=== PATIENT | male | born 1960 | race Caucasian/White ===

== ENCOUNTER 2017-07-17 07:51 | Emergency (ER) | payer OTHER ==
[~2017-07-17] VITALS: Ht 180.3 cm; Wt 92.1 kg
[2017-07-17] MEDS ORDERED: LISINOPRIL10 MG PO (08:02)
[2017-07-17 08:18] LABS: ABSOLUTE EOSINOPHILS 0.1 thou/uL (0.0-0.7); ABSOLUTE MONOCYTES 0.4 thou/uL (0.0-1.2); ABSOLUTE NEUTROPHILS 3.2 thou/uL (1.6-8.1); BASOPHILS 0.6 %; EOSINOPHILS 2.3 %; HEMATOCRIT 45.1 % (42.0-52.0); HEMOGLOBIN 15.8 gm/dL (14.0-18.0); LYMPHOCYTES 21.1 %; MCH 30.1 pg (26.0-34.0); MCV 85.9 fL (80.0-100.0); MONOCYTES 8.9 %; MPV 8.6 fl. (7.2-11.1); NUCLEATED RBCS 0 /100WBC; PLATELET COUNT* 217 thou/uL (150-400); POLYS 67.1 %; RBC 5.24 mil/uL (4.50-6.00); RDW-CV 13.4 % (10.5-14.5); WBC 4.7 thou/uL (4.0-11.0)
[2017-07-17 08:27] LABS: ANION GAP 13 mmol/L (7-16); BUN 18 mg/dL (7-18); CALCIUM 8.7 mg/dL (8.5-10.1); CHLORIDE 100 mmol/L (98-107); CO2 23 mmol/L (21-32); GLUCOSE 146 mg/dL (70-99); POTASSIUM 3.6 mmol/L (3.5-5.1); SODIUM 136 mmol/L (136-145)
[2017-07-17 08:36] LABS: APTT 27.1 Seconds (25.0-31.3)
[2017-07-17 08:38] LABS: ALKALINE PHOSPHATASE 92 U/L (46-116); LIPASE 131 U/L (73-393); NT-PRO BRAIN NAT PEPTIDE 13 pg/mL (<300); SGOT 16 U/L (15-37); SGPT 21 U/L (30-65); TOTAL BILIRUBIN 0.5 mg/dL (<0.1-1.0); TOTAL PROTEIN 7.3 g/dL (6.4-8.2); TROPONIN-I LEVEL <0.06 ng/mL (<0.06)
[2017-07-17 12:36] VITALS: BP 122/74
--- NOTE | 2017-07-17 17:56 | EKG ---
[place] [address] ELECTROCARDIOGRAM REPORT Name: JOHNNY MAE Room: [facility]#: [id number] Admission: 07/17/17 Attend Phys: Discharge: 07/17/17 Date of : 58 Report #: [id number] THIS REPORT FOR: //name// [facility] ED Test Date: 2017-07-17 Test Time: 07:54:50 Pat Name: JOHNNY MAE Department: Room: Gender: Heel Scourer: Clementina TSAI : 1960 Requested By: Teodora Gallardo Order Number: [id number] MD: Tee Sevilla Measurements Intervals [place] [facility] Rate: 100 P: 47 WV: 203 QRS: -18 QRSD: 94 T: -9 QT: 339 QTc: 438 Interpretive Statements Sinus tachycardia Borderline prolonged WV interval Borderline left axis deviation Borderline T abnormalities, inferior leads No previous ECG available for comparison Electronically Signed On 07-17-2017 17:55:47 CDT by Tee Sevilla [email or web address] <ELECTRONICALLY SIGNED> By: Tee Sevilla MD, [facility] 07/17/17 1755 [id number] Tee Sevilla MD, FAC /EPI
== END 2017-07-17 12:37 | disposition home or self-care (01) ==
LOC: M.ERS 07:51
PROVIDERS: Personal Emergency Response Attendant
DX: R07.89 Other chest pain (principal); I10 Essential (primary) hypertension